=== PATIENT | female | born 1955 | race Caucasian/White ===

== ENCOUNTER 2021-10-10 02:08 | Outpatient (RCR) | payer BC, SELFPAY ==
[2021-10-10] MEDS: NATALIZUMAB 300 MG in Normal Saline 100 ML 115 MG IV (12:19)
[2021-10-10] MEDS: Normal Saline Flush 10 ML SYR IVP (12:19)
[2021-10-10 12:31] LABS: HCT 45.9 % (36.0-46.0); HGB 15.3 g/dL (11.2-15.7); MCH 28.7 pg (27.0-33.0); MCHC 33.3 % (32.0-36.0); MCV 86 fL (80-95); MPV 9.4 fL (8.0-11.0); Platelet Count 272 10^3/uL (130-400); RBC 5.34 10^6/uL (3.93-5.22); RDW 13.4 % (11.7-14.6); RDW-SD 42.5 fL; WBC 8.41 10^3/uL (4.4-10.8)
[2021-10-10 12:48] LABS: ALT 35 U/L (14-59); AST 26 U/L (15-37); Albumin 3.4 g/dL (3.4-5.0); Alkaline Phosphatase 96 U/L (46-116); Anion Gap 6.9 mmol/L (3-11); BUN 21 mg/dL (7-18); Bilirubin, Total 0.4 mg/dL (0.2-1.0); C-Reactive Protein 0.73 mg/dL (0.0-0.3); CO2 29.1 mmol/L (21.0-32.0); CREATININE 0.7 mg/dL (0.55-1.02); Calcium 9.8 mg/dL (8.5-10.1); Chloride 103 mmol/L (98-107); Glucose 97 mg/dL (74-106); Potassium 3.6 mmol/L (3.5-5.1); Sodium 139 mmol/L (136-145); Total Protein 7.6 g/dL (6.4-8.2)
== END 2021-11-05 23:59 | disposition home or self-care (01) ==
LOC: INF 02:08
PROVIDERS: Visit Provider Family Medicine
DX: R94.5 Abnormal results of liver function studies (principal); G35 Multiple sclerosis
CPT/HCPCS: 36415; 80053; 85027; 96365; 96413; 86140; J2323

== ENCOUNTER 2021-11-16 20:05 | Outpatient (REF) | payer BC, SELFPAY ==
[2021-11-16 21:46] LABS: Bilirubin Negative (Negative); Blood Trace-intact (Negative); Clarity Clear (Clear); Glucose Negative (Negative); Ketones Negative (Negative); Leukocyte Esterase Trace (Negative); Nitrite Negative (Negative); Urobilinogen 0.2 EU/dL (Up TO 0.2)
[2021-11-16 21:49] LABS: Bacteria Rare HPF (Negative); C & S Indicated? Yes; Casts Negative LPF (Negative); Crystals Negative HPF (Negative); Epithelial Cells Rare HPF (Negative); Mucus Negative (Negative); RBC 0-2 HPF (0-2)
== END 2021-11-16 20:06 | disposition home or self-care (01) ==
LOC: LBN 20:05
PROVIDERS: Visit Provider Nurse Practitioner Family
DX: R39.89 Other symptoms and signs involving the genitourinary system (principal); N39.0 Urinary tract infection, site not specified
CPT/HCPCS: 87077; 81003; 81015; 87086; 87186

== ENCOUNTER 2021-11-20 02:16 | Outpatient (RCR) | payer BC, SELFPAY ==
[2021-11-20] MEDS: NATALIZUMAB 300 MG in Normal Saline 100 ML 115 MG IV (10:06)
[2021-11-20] MEDS: Normal Saline Flush 10 ML SYR IVP (11:12)
== END 2021-12-06 23:59 | disposition home or self-care (01) ==
LOC: INF 02:16
PROVIDERS: Visit Provider Family Medicine
DX: G35 Multiple sclerosis (principal)
CPT/HCPCS: 96365; J2323